=== PATIENT | female | born 1960 | race Caucasian/White ===

== ENCOUNTER 2024-02-20 18:22 | Emergency (ER) | payer SELFPAY ==
[2024-02-20 19:17] VITALS: BP 132/88; PULSE 99; RESP 18; TEMP 36.8; O2SAT 99
--- NOTE | 2024-02-20 19:26 | PD.EDANIML ---
ED Animal Bite RME/HPI General Chief Complaint: Animal Bite Stated Complaint: DOG BITE TO RIGHT BREAST, LEFT HIP PAIN Arrival date/time: 02/20/24 18:22 RME / HPI RME / HPI narrative: DR. TOLEDO MAIN ED EVALUATION: Related Data Allergies Allergy/AdvReac Type Severity Reaction Status Date / Time No Known Allergies Allergy Verified 02/20/24 18:28 Course Vital Signs Vital signs: Vital Signs Temperature 98.2 F 02/20/24 19:17 Pulse Rate 99 02/20/24 19:17 Respiratory Rate 18 02/20/24 19:17 Blood Pressure 132/88 H 02/20/24 19:17 Pulse Oximetry (%) 99 02/20/24 19:17 Oxygen Delivery Method Room Air 02/20/24 19:17 Discharge Plan Patient/Caregiver Discharge Instructions Print Language: Hungarian
--- NOTE | 2024-02-20 20:03 | PD.EDADDENDU ---
Emergency Room Addendum Addendum Narrative: I called this patient to return to the emergency department for evaluation. There was no answer and or the phone number said that the number is different, which changed. I cannot leave a message.
== END 2024-02-20 19:35 | disposition left against medical advice (07) ==
PROVIDERS: Emergency Provider Emergency Medicine
DX: Z53.21 Procedure and treatment not carried out due to patient leaving prior to being seen by health care provider (principal)
CPT/HCPCS: 99281